=== PATIENT | male | born 2000 | race Caucasian/White ===

== ENCOUNTER 2021-02-10 22:16 | Emergency (ER) | payer OTHER ==
[2021-02-11 02:37] LABS: ALBUMIN 3.8 g/dL (3.4-5.0); BILIRUBIN - TOTAL 0.5 mg/dL (0.2-1.0); CREATININE 0.94 mg/dL (0.67-1.17); GLOBULIN (CALCULATION) 3.8 g/dL; POTASSIUM 3.6 mmol/L (3.5-5.1); TOTAL PROTEIN 7.6 g/dL (6.4-8.2)
[2021-02-11 02:50] LABS: BASOPHIL 0.5 % (0-2); EOSINOPHIL 3.3 % (0-5); HCT 44.6 % (42.0-52.0); HGB 15.2 g/dl (13.2-18.0); LYMPHOCYTE 28.9 % (15-48); MCH 29.4 pg (25.0-31.0); MCHC 34.1 g/dL (32.0-36.0); MCV 86.3 fL (78.0-100.0); MONOCYTE 6.8 % (0-12); MPV 10.1 fL (6.0-9.5); NEUTROPHIL 59.8 % (41-80); NRBC 0; PLT 222 K/uL (150-400); RBC 5.17 M/uL (4.70-6.00); RDW 13.9 % (11.5-14.0); WBC 11.9 K/uL (4.0-10.5)
== END 2021-02-11 00:12 | disposition home or self-care (01) ==
LOC: FER 22:16
PROVIDERS: Emergency Medicine
DX: R55 Syncope and collapse (principal); F17.210 Nicotine dependence, cigarettes, uncomplicated; Z88.5 Allergy status to narcotic agent
CPT/HCPCS: 36415; 80053; 85025; 99284

== ENCOUNTER 2021-03-05 21:23 | Emergency (ER) | payer OTHER ==
[2021-03-05] MEDS ORDERED: NAPROXEN500 MG PO (22:52)
== END 2021-03-05 23:10 | disposition home or self-care (01) ==
LOC: FER 21:23
DX: S52.552A Other extraarticular fracture of lower end of left radius, initial encounter for closed fracture (principal); F17.290 Nicotine dependence, other tobacco product, uncomplicated; Z88.5 Allergy status to narcotic agent; W19.XXXA Unspecified fall, initial encounter; Y92.830 Public park as the place of occurrence of the external cause
CPT/HCPCS: 73110